=== PATIENT | male | born 1975 | race Caucasian/White ===

== ENCOUNTER 2021-10-22 17:30 | Outpatient (CLI) | payer OTHER | END 2021-10-22 17:31 | disposition home or self-care (01) | LOC: SLEEPLAB 17:30 | PROVIDERS: ATTEND Internal Medicine | DX: G47.33 Obstructive sleep apnea (adult) (pediatric) (principal); R53.83 Other fatigue; F41.9 Anxiety disorder, unspecified; R06.83 Snoring; F32.9 Major depressive disorder, single episode, unspecified; G47.00 Insomnia, unspecified; G47.31 Primary central sleep apnea | CPT/HCPCS: 95806 ==

== ENCOUNTER 2022-08-19 12:10 | Outpatient (CLI) | payer OTHER | END 2022-08-19 12:11 | disposition home or self-care (01) | LOC: TBSIIMAG 12:10 | PROVIDERS: ATTEND Specialist | DX: M47.22 Other spondylosis with radiculopathy, cervical region (principal) | CPT/HCPCS: 72141 ==

== ENCOUNTER 2022-09-24 05:52 | Observation (INO) | payer OTHER ==
[2022-09-23 13:39] VITALS: BMI 36.9
[2022-09-24] MEDS ORDERED: Thrombin 5000 UNITS/5 ML VIAL ONE (06:38)
[2022-09-24] MEDS ORDERED: Fentanyl 250 MCG/5 ML VIAL ONE (06:44)
[2022-09-24] MEDS ORDERED: Dexmedetomidine 200 MCG/2 ML VIAL ONE (06:44)
[2022-09-24] MEDS ORDERED: SUGAMMADEX SODIUM 200 MG/2 ML VIAL ONE (06:44)
[2022-09-24] MEDS ORDERED: Midazolam HCl 2 mg/2 ml Vial ONE (07:05)
[2022-09-24] MEDS ORDERED: CEFAZOLIN 2 GM VIAL ONE (07:07)
[2022-09-24] MEDS ORDERED: Sodium Chloride 0.9% 100 ML ONE (07:07)
[2022-09-24] MEDS ORDERED: PROPOFOL 200 MG/20 ML VIAL ONE (07:33)
[2022-09-24] MEDS ORDERED: Ondansetron PF 4 MG/2 ML Vial ONE (07:33)
[2022-09-24] MEDS ORDERED: Glycopyrrolate 0.2 MG/ML 5 ML SYRINGE ONE (07:33)
[2022-09-24] MEDS ORDERED: Lidocaine 1% PF 5 ML VIAL ONE (07:33)
[2022-09-24] MEDS ORDERED: Dexamethasone 20 MG/5 ML VIAL ONE (07:33)
[2022-09-24] MEDS ORDERED: NEOSTIGMINE 3 MG/3 ML SYR 3 MG/3 ML SYRINGE ONE (07:33)
[2022-09-24] MEDS ORDERED: PHENYLEPHRINE-NS 100 MCG/ML 10 ML SYRINGE ONE (07:33)
[2022-09-24] MEDS ORDERED: ePHEDrine 50 MG/ML VIAL ONE (07:33)
[2022-09-24] MEDS ORDERED: Rocuronium Bromide 10 MG/ML (10ML VIAL) ONE (07:33)
[2022-09-24] MEDS ORDERED: Ondansetron PF 4 MG/2 ML Vial IVP PRN (09:16)
[2022-09-24] MEDS ORDERED: traMADol HCl 50 MG TAB PO PRN (09:16)
[2022-09-24] MEDS ORDERED: Acetaminophen 325 MG TAB PO PRN (09:16)
[2022-09-24] MEDS ORDERED: HYDROcodone/Acetaminophen 7.5/325 mg Tablet PO PRN (09:16)
[2022-09-24] MEDS ORDERED: Morphine 2 MG/ML VIAL SLOW IVP PRN (09:16)
[2022-09-24] MEDS ORDERED: hydrALAZINE 20 MG/ML VIAL SLOW IVP PRN (09:19)
[2022-09-24] MEDS ORDERED: Cepastat Lozenges 1 LOZ PO PRN (09:19)
[2022-09-24] MEDS ORDERED: Chloraseptic Spray 180 ml Bottle PO PRN (09:19)
[2022-09-24] MEDS ORDERED: Fentanyl 100 MCG/2 ML VIAL ONE ×2 (09:43→10:53)
[2022-09-24] MEDS: traMADol HCl 50 MG TAB PO PRN ×2 (12:47→22:02)
[2022-09-24] MEDS: Sodium Chloride 0.9% 1,000 ML IV SCH ×2 (12:48→23:02)
[2022-09-24] MEDS: tiZANidine HCl 4 MG TAB PO PRN (15:18)
[2022-09-24] MEDS: CEFAZOLIN 2 GM in Sodium Chloride 0.9% 100 ML IVPB SCH ×2 (15:18→22:03)
[2022-09-24] MEDS: Venlafaxine HCl XR 150 MG CAP PO SCH (20:30)
[2022-09-24] MEDS ORDERED: Aripiprazole 2 MG TAB PO SCH (21:00)
[2022-09-25] MEDS: tiZANidine HCl 4 MG TAB PO PRN ×2 (02:30→10:18)
[2022-09-25] MEDS: CEFAZOLIN 2 GM in Sodium Chloride 0.9% 100 ML IVPB SCH (06:00)
[2022-09-25 09:12] VITALS: BP 122/84; TEMP 97.3
[2022-09-25] MEDS: Venlafaxine HCl XR 150 MG CAP PO SCH (09:21)
[2022-09-25] MEDS: traMADol HCl 50 MG TAB PO PRN (10:19)
== END 2022-09-25 10:40 | disposition home or self-care (01) ==
LOC: SDC 05:52 → SURG A 11:25
PROVIDERS: ADMIT Surgery; ATTEND Surgery
PROC: 0RG10A0 Fusion of Cervical Vertebral Joint with Interbody Fusion Device, Anterior Approach, Anterior Column, Open Approach (ICD-10-PCS; principal; 2022-09-24)
DX: M50.123 Cervical disc disorder at C6-C7 level with radiculopathy (principal); M48.02 Spinal stenosis, cervical region; Z79.899 Other long term (current) drug therapy; Z88.4 Allergy status to anesthetic agent; Z88.5 Allergy status to narcotic agent; Z88.8 Allergy status to other drugs, medicaments and biological substances
CPT/HCPCS: 96365; 96366; 96375; 96376; C1713; G0378; J1100; J2250; J2272; J2405; J2704; J3010; J3490; J7050